=== PATIENT | male | born 1985 | race Caucasian/White ===

== ENCOUNTER 2017-07-02 08:38 | Emergency (ER) | payer BC, OTHER ==
[2017-07-02] MEDS ORDERED: Cyclobenzaprine 10 MG TAB ONE (09:12)
[2017-07-02] MEDS ORDERED: Morphine 4 MG/ML VIAL ONE (09:12)
[2017-07-02] MEDS ORDERED: methylPREDNISolone Sod Succ/PF 125 MG/2 ML VIAL ONE (09:12)
[2017-07-02] MEDS ORDERED: Water For Inject, Bacteriostat 30 ML ONE (09:14)
== END 2017-07-02 10:18 | disposition home or self-care (01) ==
LOC: ERS 08:38
DX: M54.42 Lumbago with sciatica, left side (principal)
CPT/HCPCS: 96372; 99283; J2270; J2930

== ENCOUNTER 2017-10-26 07:55 | Day surgery (SDC) | payer OTHER ==
[2017-10-25 10:37] VITALS: BMI 31.4
[2017-10-26] MEDS ORDERED: CEFAZOLIN/Water 2 GM/20 ML SYRINGE ONE (08:29)
[2017-10-26 08:55] LABS: Hemoglobin 15.8 g/dL (14.0-18.0); Mean Corpuscular HGB CONC 33.8 g/dL (32.0-36.0); Mean Corpuscular Hemoglobin 29.7 pg (27.0-31.0); Mean Platelet Volume 6.5 fL (7.4-10.4); Platelet Count 246 thou/uL (130-400); RBC Distribution Width 11.3 % (11.5-14.5); Red Blood Cell (RBC) Count 5.31 mill/uL (4.70-6.10); White Blood Cell (WBC) Count 6.9 thou/uL (4.8-10.8)
[2017-10-26 09:15] LABS: Anion Gap 15 mmol/L (10-20); BUN (Urea Nitrogen) 15 mg/dL (8.9-20.6); Calc. Creatinine Clearance 153 mL/min (70-130); Calcium 9.6 mg/dL (7.8-10.44); Carbon Dioxide 22 mmol/L (22-29); Chloride 105 mmol/L (98-107); Estimated GFR-MDRD 79; Glucose 101 mg/dL (70-105); Potassium 4.2 mmol/L (3.5-5.1); Sodium 138 mmol/L (136-145)
[2017-10-26 09:26] LABS: INR-International Normal Ratio 0.9; PTT 25.7 SEC (22.9-36.1); Prothrombin Time 12.7 SEC (12.0-14.7)
[2017-10-26] MEDS ORDERED: Fentanyl 100 MCG/2 ML VIAL ONE (09:32)
[2017-10-26] MEDS ORDERED: Glycopyrrolate 0.2 MG/ML 5 ML SYRINGE ONE ×2 (09:32→10:22)
[2017-10-26] MEDS ORDERED: Thrombin 5000 UNITS/5 ML VIAL ONE (09:37)
[2017-10-26] MEDS ORDERED: Bacitracin Zinc Ointment 30 gm TUBE ONE (09:37)
[2017-10-26] MEDS ORDERED: Sodium Chloride 0.9% 10 ML ONE (09:37)
[2017-10-26] MEDS ORDERED: PHENYLEPHRINE-NS 100 MCG/ML 10 ML SYRINGE ONE (10:22)
[2017-10-26] MEDS ORDERED: PROPOFOL 200 MG/20 ML VIAL ONE (10:22)
[2017-10-26] MEDS ORDERED: PROVENTIL INHALER 6.7 G (200 INHALATIONS) ONE (10:22)
[2017-10-26] MEDS ORDERED: Lidocaine 1% PF 5 ML VIAL ONE (10:22)
[2017-10-26] MEDS ORDERED: Dexamethasone 20 MG/5 ML VIAL ONE (10:22)
[2017-10-26] MEDS ORDERED: Ondansetron HCl/PF 4 MG/2 ML Vial ONE (10:22)
[2017-10-26] MEDS ORDERED: Milk Of Magnesia 30 ML UDCUP PO PRN (12:44)
[2017-10-26] MEDS ORDERED: Mag-Al 1200 mg/1200 mg/30 ML UDCUP PO PRN (12:44)
[2017-10-26] MEDS ORDERED: Acetaminophen 325 MG TAB PO PRN (12:44)
[2017-10-26] MEDS ORDERED: tiZANidine HCl 4 MG TAB PO PRN (12:44)
[2017-10-26] MEDS ORDERED: Acetaminophen/Codeine 30-300mg Tablet PO PRN (12:44)
[2017-10-26] MEDS ORDERED: traMADol HCl 50 MG TAB PO PRN (12:44)
[2017-10-26] MEDS ORDERED: Bisacodyl 10 MG SUPP PR PRN (12:44)
[2017-10-26] MEDS ORDERED: Promethazine HCl 25 MG/ML VIAL IM PRN ×2 (12:44→13:06)
[2017-10-26] MEDS ORDERED: Fleet Enema 133 ML BOT PR PRN (12:44)
[2017-10-26] MEDS ORDERED: SUGAMMADEX SODIUM 200 MG/2 ML VIAL ONE (12:48)
[2017-10-26] MEDS ORDERED: Promethazine HCl 25 MG/ML VIAL SLOW IVP PRN (13:06)
[2017-10-26] MEDS ORDERED: Ondansetron HCl/PF 4 MG/2 ML Vial IVP PRN (13:06)
[2017-10-26] MEDS ORDERED: Morphine Sulfate 2 MG/ML SYRINGE SLOW IVP PRN (13:06)
[2017-10-26] MEDS ORDERED: Meperidine HCl/PF 25 MG/ML VIAL SLOW IVP PRN (13:06)
[2017-10-26] MEDS ORDERED: HYDROmorphone 2 MG/ML VIAL SLOW IVP PRN (13:06)
--- NOTE | 2017-10-26 13:09 | OP ---
DATE OF PROCEDURE: 10/26/2017 OR: 12. WOUND TYPE: Type 1 wound. SURGEON: Tu Muñoz M.D. GASTROENTEROLOGIST: Raul Mcbride PA-C. PREPROCEDURE DIAGNOSES: Left S1 radiculopathy, left L5-S1 disk extrusion. POSTPROCEDURE DIAGNOSES: Left S1 radiculopathy, left L5-S1 disk extrusion. PROCEDURES: 1. Left L5-S1 hemilaminotomy, foraminotomy and diskectomy. 2. Use of operative microscope for microdissection. DESCRIPTION OF PROCEDURE: After informed consent was obtained from the patient, the patient was brou ght to OR 12. Proper patient pause and identification was carried out. He was placed under general endotracheal anesthesia and positioned prone on the OR table. All appropriate points were padded. W e identified the L5-S1 dorsal spines and linear evon was made over this region. This area was steril swati cleansed, prepared and draped. Proper patient pause and identification was carried out. The wou nd was then opened with a combination of sharp, monopolar and blunt dissection in the L5-S1. Left-si ded hemilamina was exposed. Localization film confirmed our area of interest. We then performed a l eft L5-S1 hemilaminotomy and foraminotomy. The microscope was brought in. With the use of microdiss ection, we did a left L5-S1 diskectomy. We assured freedom of the left L5 and left S1 nerve roots. We were very pleased with our decompression. Copious irrigation occurred throughout and maximized he mostasis. The wound was then closed in anatomic layers following sprinkle of vancomycin powder. The patient then emerged from anesthesia.
[2017-10-26] MEDS ORDERED: HYDROmorphone 2 MG/ML VIAL ONE (13:12)
[2017-10-26] MEDS: Gabapentin 300 MG CAP PO SCH ×3 (18:04→21:20)
[2017-10-26] MEDS: Sodium Chloride 0.9% 1,000 ML IV SCH (18:10)
[2017-10-26] MEDS: CEFAZOLIN/Water 2 GM/20 ML SYRINGE SLOW IVP SCH ×2 (18:11→18:44)
[2017-10-27] MEDS: Sodium Chloride 0.9% 1,000 ML IV SCH (00:13)
[2017-10-27] MEDS: CEFAZOLIN/Water 2 GM/20 ML SYRINGE SLOW IVP SCH (00:14)
[2017-10-27] MEDS: HYDROcodone/Acetaminophen 7.5/325 mg Tablet PO PRN ×2 (00:16→08:01)
[2017-10-27 07:53] VITALS: BP 111/72; TEMP 98.8
[2017-10-27] MEDS: Gabapentin 300 MG CAP PO SCH (08:01)
--- NOTE | 2017-10-27 15:37 | DIS ---
Mr. Oliva was admitted to [facility] by Dr. Tu Muñoz on 10/26/2017 with subsequent shandra ellis on 10/27/2017. ADMISSION DIAGNOSIS: Status post lumbar laminectomy. DISCHARGE DIAGNOSIS: Status post lumbar laminectomy. HOSPITAL COURSE: Mr. Oliva's hospital course was uncomplicated by any issues. No consultations w ere ordered. He was discharged the following morning in good condition with anticipated outpatient f ollowup in 2 weeks.
--- NOTE | 2017-10-30 10:01 | EKG ---
Test Reason : PREOP Blood Pressure : / mmHG Vent. Rate : 069 BPM Atrial Rate : 069 BPM P-R Int : 166 ms QRS Dur : 090 ms QT Int : 376 ms P-R-T Axes : 032 033 014 degrees QTc Int : 402 ms Normal sinus rhythm Normal ECG No previous ECGs available Confirmed by DR. Clayton EPACE ([id number]) on 10/30/2017 10:01:31 AM Referred By: DEYANIRA Confirmed By:DR. Clayton PEACE
== END 2017-10-27 11:10 | disposition home or self-care (01) ==
LOC: SDC 07:55 → UNDOADMOB 14:50 → SJJU 14:50 → SDC 10-27 11:10 → UNDODISOB 10-27 11:10
PROVIDERS: ATTEND Surgery
PROC: 01NB0ZZ Release Lumbar Nerve, Open Approach (ICD-10-PCS; principal; 2017-10-26)
DX: M51.16 Intervertebral disc disorders with radiculopathy, lumbar region (principal); M51.27 Other intervertebral disc displacement, lumbosacral region; Z91.040 Latex allergy status
CPT/HCPCS: 36415; 76001; 80048; 85027; 85610; 85730; 93005; 93010; 96374; A4216; J0131; J1100; J1170; J2001; J2405; J2704; J3010; J3370; J3490